=== PATIENT | male | born 1965 | race Caucasian/White ===

== ENCOUNTER 2017-06-09 07:07 | Day surgery (SDC) | payer OTHER ==
[~2017-06-09 07:07] MED LIST: ACETAMINOPHEN 325 MG TAB PO
[2017-06-09] MEDS ORDERED: MIDAZOLAM INJ 2 MG/2 ML VIAL (J2250) As Ordered (07:27)
[2017-06-09] MEDS ORDERED: fentaNYL 100 MCG/2 ML INJECTION (J3010) As Ordered (07:28)
[2017-06-09] MEDS ORDERED: AcetaZOLAMIDE 500 MG ER CAP PO (07:30)
[2017-06-09] MEDS ORDERED: TRIMETHOBENZAMIDE 300 MG CAP PO (07:30)
[2017-06-09] MEDS: OFLOXACIN 0.3 % (OCUFLOX) OPTH SOL 5ML OS (07:38)
[2017-06-09] MEDS: PILOCARPINE 1% OPHTH SOLN 15 ML XX (07:40)
[2017-06-09] MEDS: MANNITOL 20% BAG 250 ML IV (07:50)
[2017-06-09] MEDS: LIDOCAINE 3.5 % 1ML OPHTH TOPICAL GEL OU (07:55)
[2017-06-09] MEDS ORDERED: LIDOCAINE 2% MDV 20 ML VIAL As Ordered (08:21)
[2017-06-09] MEDS: AcetaZOLAMIDE 500MG INJECTION (J1120) IV (08:25)
[2017-06-09] MEDS ORDERED: PROPOFOL 200 MG/20 ML VIAL As Ordered (08:32)
[2017-06-09] MEDS ORDERED: LIDOCAINE 2% INJ 100 MG/5 ML SDV (FOR ANES.) As Ordered (08:32)
[2017-06-09] MEDS: POVIDONE-IODINE 5% OPHTH PREP SOL 30ML As Ordered (08:40)
[2017-06-09] MEDS ORDERED: ACETYLCHOLINE OPHTH SOLN 1% 2ML (MIOCHOL-E) As Ordered (08:55)
[2017-06-09] MEDS: HEALON DUET (HEALON 10MG/ML 0.55ML & HEALON ENDOCOAT 30MG/ML 0.85ML) As Ordered (09:19)
[2017-06-09] MEDS: BALANCED SALT IRRIGATION SOL 500ML GLASS BOTTLE (FOR OR EYE COMPOUND) As Ordered (09:19)
[2017-06-09] MEDS: TOBRADEX OPHTH OINT 3.5 GM As Ordered (09:30)
[2017-06-09] MEDS: ACETAMINOPHEN TAB 650MG DOSE (2X325MG) PO (09:53)
== END 2017-06-09 10:44 | disposition home or self-care (01) ==
LOC: M SDC 07:07
DX: H18.20 Unspecified corneal edema (principal); K21.9 Gastro-esophageal reflux disease without esophagitis; Z79.899 Other long term (current) drug therapy; F17.210 Nicotine dependence, cigarettes, uncomplicated
CPT/HCPCS: 65756

== ENCOUNTER 2017-06-11 06:13 | Day surgery (SDC) | payer OTHER ==
[2017-06-11] MEDS ORDERED: MIDAZOLAM INJ 2 MG/2 ML VIAL (J2250) As Ordered (06:51)
[2017-06-11] MEDS ORDERED: fentaNYL 100 MCG/2 ML INJECTION (J3010) As Ordered (06:51)
[2017-06-11] MEDS ORDERED: OFLOXACIN 0.3 % (OCUFLOX) OPTH SOL 5ML XX (07:00)
[2017-06-11] MEDS ORDERED: LIDOCAINE 3.5 % 1ML OPHTH TOPICAL GEL OU (07:00)
[2017-06-11] MEDS: ACETYLCHOLINE OPHTH SOLN 1% 2ML (MIOCHOL-E) As Ordered (07:07)
[2017-06-11] MEDS: LIDOCAINE 2% MDV 20 ML VIAL As Ordered (08:13)
[2017-06-11] MEDS: TOBRADEX OPHTH OINT 3.5 GM As Ordered (08:16)
[2017-06-11] MEDS: LIDOCAINE 1% SDV 5 ML VIAL As Ordered (08:22)
[2017-06-11] MEDS ORDERED: PROPOFOL 200 MG/20 ML VIAL As Ordered (08:32)
[2017-06-11] MEDS ORDERED: LIDOCAINE 2% INJ 100 MG/5 ML SDV (FOR ANES.) As Ordered (08:32)
== END 2017-06-11 09:37 | disposition home or self-care (01) ==
LOC: M SDC 06:13
DX: T85.328A Displacement of other ocular prosthetic devices, implants and grafts, initial encounter (principal); X58.XXXA Exposure to other specified factors, initial encounter; Y93.89 Activity, other specified; Y92.89 Other specified places as the place of occurrence of the external cause; Y99.8 Other external cause status; R06.83 Snoring; Z72.0 Tobacco use
CPT/HCPCS: 66020